=== PATIENT | male | born 1970 | race Caucasian/White ===

== ENCOUNTER 2018-08-07 09:00 | Day surgery (SDC) | payer OTHER ==
[~2018-08-07 09:00] MED LIST: CEFAZOLIN 1 GM INJ; DEXAMETHASONE 4 MG/ML 5 ML INJ; FENTAnyl 50 MCG/ML VIAL; GLYCOPYRROLATE 0.4 MG INJ; MIDAZOLAM 1 MG/ML 2 ML INJ; NEOSTIGMINE 3 MG/3 ML SYRINGE; ONDANSETRON 4 MG INJ; PROPOFOL 20 ML; ROCURONIUM 50 MG INJ; ROPIVACAINE 0.5 % 30 ML VIAL
[2018-08-07] MEDS: LACTATED RINGER'S 1,000 ML IV (10:06)
[2018-08-07] MEDS: POLYMYXIN/BACITRACIN 1L IRRIG (14:26)
[2018-08-07] MEDS: ROPIVACAINE 0.5 % 30 ML VIAL (14:26)
[2018-08-07] MEDS: POVIDONE IODINE 10% 28.4 GM OINT (14:26)
[2018-08-07] MEDS: CA CHLORIDE 10% 10 ML SYRINGE (15:10)
[2018-08-07] MEDS: THROMBIN 5000 UNIT VIAL (15:10)
[2018-08-07] MEDS ORDERED: KETOROLAC 30 MG INJ (16:21)
[2018-08-07] MEDS ORDERED: SOD CHLORIDE 0.9% 1,000 ML IV (16:28)
[2018-08-07] MEDS ORDERED: ONDANSETRON 4 MG INJ IV (16:30)
[2018-08-07] MEDS ORDERED: OXYCODONE/ACETAMINOPHEN (5/325) TAB PO ×2 (16:30)
[2018-08-07] MEDS ORDERED: morphine 2 MG INJ IV (16:30)
== END 2018-08-07 18:20 | disposition home or self-care (01) ==
LOC: SDS 09:00
DX: S86.012D Strain of left Achilles tendon, subsequent encounter (principal); X58.XXXD Exposure to other specified factors, subsequent encounter; M65.872 Other synovitis and tenosynovitis, left ankle and foot
CPT/HCPCS: 27650